=== PATIENT | female | born 1975 | race American Indian/Alaskan Native ===

== ENCOUNTER 2020-08-26 10:34 | Outpatient (CLI) | payer OTHER ==
--- NOTE | 2020-08-26 12:05 | XRay Report ---
CLINICAL DATA: BACK PAIN TECHNICAL DATA: AP and lateral views lumbar spine. FINDINGS: The bone mineralization is normal. Vertebral body heights are normal. Intervertebral disc spaces are well maintained. Pedicles and spinous processes are normal in alignment. SI joints and sacrum are nor mal. IMPRESSION: Normal examination lumbar spine. Signer Name: Robles Crawley MD Signed: 08/26/2020 12:00 PM Workstation Name: [id number]
--- NOTE | 2020-08-26 12:06 | XRay Report ---
HISTORY:RIGHT KNEE PAIN COMPARISON: None. TECHNIQUE: AP and lateral views were obtained FINDINGS: Bones: No fracture or dislocation. Joint spaces: Maintained. Soft tissues: No significant abnormality. Additional findings: None. IMPRESSION: 1. No significant abnormality. Signer Name: Robles Crawley MD Signed: 08/26/2020 12:01 PM Workstation Name: [id number]
== END 2020-08-26 10:35 | disposition home or self-care (01) ==
LOC: XRAY 10:34
PROVIDERS: ATTEND Internal Medicine
DX: M25.561 Pain in right knee (principal); M54.5 Low back pain
CPT/HCPCS: 72100